=== PATIENT | female | born 1990 | race Caucasian/White ===

== ENCOUNTER → 2018-08-07 15:38 | Outpatient (CLI) | payer SELFPAY | END | disposition home or self-care (01) | LOC: D.LDO 15:38 | PROVIDERS: ATTEND Obstetrics & Gynecology | DX: O36.5990 Maternal care for other known or suspected poor fetal growth, unspecified trimester, not applicable or unspecified (principal); Z3A.00 Weeks of gestation of pregnancy not specified ==

== ENCOUNTER → 2018-08-14 11:35 | Outpatient (CLI) | payer SELFPAY | END | disposition home or self-care (01) | LOC: D.LDO 11:35 | DX: O36.5930 Maternal care for other known or suspected poor fetal growth, third trimester, not applicable or unspecified (principal); Z3A.30 30 weeks gestation of pregnancy ==

== ENCOUNTER → 2018-08-21 13:07 | Outpatient (CLI) | payer SELFPAY | END | disposition home or self-care (01) | LOC: D.LDO 13:07 | PROVIDERS: ATTEND Obstetrics & Gynecology | DX: O36.5930 Maternal care for other known or suspected poor fetal growth, third trimester, not applicable or unspecified (principal); Z3A.31 31 weeks gestation of pregnancy ==

== ENCOUNTER → 2018-08-28 16:06 | Outpatient (CLI) | payer SELFPAY | END | disposition home or self-care (01) | LOC: D.LDO 16:06 | PROVIDERS: ATTEND Obstetrics & Gynecology | DX: O36.5930 Maternal care for other known or suspected poor fetal growth, third trimester, not applicable or unspecified (principal); Z3A.32 32 weeks gestation of pregnancy ==

== ENCOUNTER → 2018-09-04 17:00 | Outpatient (CLI) | payer SELFPAY | END | disposition home or self-care (01) | LOC: D.LDO 17:00 | PROVIDERS: ATTEND Obstetrics & Gynecology | DX: O26.893 Other specified pregnancy related conditions, third trimester (principal); Z3A.33 33 weeks gestation of pregnancy ==

== ENCOUNTER → 2018-09-07 10:13 | Outpatient (CLI) | payer SELFPAY ==
[2018-09-07 10:36] LABS: BASOPHILS 0.3 % (0-2); EOSINOPHILS 1.6 % (0-7); HEMATOCRIT 31.7 % (36.0-48.0); HEMOGLOBIN 11.4 g/dL (12-16); IMMATURE GRANULOCYTES 0.3 % (0-5); LYMPHOCYTES 19.2 % (15-50); MCH 32.9 pg (26.0-34.0); MCV 91.6 fL (80.0-100.0); MEAN PLATELET VOLUME 11.3 fL (7.4-10.4); MONOCYTES 8.1 % (2-11); NEUTROPHILS 70.5 % (40-80); PLATELET COUNT 142 10x3/uL (130-400); RBC 3.46 10x6/uL (4.00-5.40); RDW 12.7 % (11.5-14.5); WBC 7.4 10x3/uL (4.8-10.8)
[2018-09-07 10:44] LABS: APPEARANCE CLEAR (CLEAR); BILIRUBIN NEGATIVE (NEGATIVE); COLOR YELLOW (YELLOW); GLUCOSE NEGATIVE (NEGATIVE); KETONE NEGATIVE (NEGATIVE); NITRITE NEGATIVE (NEGATIVE); PROTEIN NEGATIVE (NEGATIVE); SPECIFIC GRAVITY 1.015 (1.005-1.020); UROBILINOGEN NORMAL (NORMAL)
[2018-09-07 10:51] LABS: ALBUMIN 2.8 g/dL (3.4-5.0); ALKALINE PHOSPHATASE 108 U/L (46-116); ALT (SGPT) 32 U/L (10-68); BILIRUBIN - INDIRECT 0.17 mg/dL (0.00-1.00); BILIRUBIN - TOTAL 0.21 mg/dL (0.2-1.3); CALC OSMOLALITY 271 mosm/kg (275-300); CALCIUM 8.3 mg/dL (8.5-10.1); CARBON DIOXIDE 22.7 mmol/L (21.0-32.0); CHLORIDE - SERUM 105 mmol/L (98-107); CREATININE - SERUM 0.7 mg/dL (0.6-1.3); GLUCOSE 87 mg/dL (74-106); POTASSIUM - SERUM 3.8 mmol/L (3.5-5.1); PROTEIN - SERUM 6.7 g/dL (6.4-8.2); SODIUM 137 mmol/L (136-145); UREA NITROGEN 10 mg/dL (7-18); URIC ACID 5.4 mg/dL (2.6-7.2); eGFR NON AFRICAN AMERICAN > 90 mL/min (90-120)
[2018-09-07 10:52] LABS: BILIRUBIN - DIRECT 0.04 mg/dL (0.00-0.30)
== END | disposition home or self-care (01) ==
LOC: D.LDO 10:13
PROVIDERS: ATTEND Obstetrics & Gynecology
DX: O36.5930 Maternal care for other known or suspected poor fetal growth, third trimester, not applicable or unspecified (principal); Z3A.34 34 weeks gestation of pregnancy

== ENCOUNTER → 2018-09-11 09:54 | Outpatient (CLI) | payer SELFPAY | END | disposition home or self-care (01) | LOC: D.LDO 09:54 | PROVIDERS: ATTEND Obstetrics & Gynecology | DX: O36.5930 Maternal care for other known or suspected poor fetal growth, third trimester, not applicable or unspecified (principal); Z3A.34 34 weeks gestation of pregnancy ==

== ENCOUNTER → 2018-09-18 15:12 | Outpatient (CLI) | payer SELFPAY | END | disposition home or self-care (01) | LOC: D.LDO 15:12 | PROVIDERS: ATTEND Obstetrics & Gynecology | DX: O36.5930 Maternal care for other known or suspected poor fetal growth, third trimester, not applicable or unspecified (principal); Z3A.35 35 weeks gestation of pregnancy ==

== ENCOUNTER 2019-07-28 17:16 | Emergency (ER) | payer MEDICAID ==
[2019-07-28 17:24] VITALS: Wt 52.3 kg
[2019-07-28 17:49] LABS: BASOPHILS 0.3 % (0-2); EOSINOPHILS 2.2 % (0-7); HEMATOCRIT 40.2 % (36.0-48.0); HEMOGLOBIN 13.5 g/dL (12-16); IMMATURE GRANULOCYTES 0.1 % (0-5); LYMPHOCYTES 31.2 % (15-50); MCH 30.8 pg (26.0-34.0); MCHC 33.6 g/dL (31.0-37.0); MCV 91.6 fL (80.0-100.0); MEAN PLATELET VOLUME 10.2 fL (7.4-10.4); MONOCYTES 10.7 % (2-11); NEUTROPHILS 55.5 % (40-80); RBC 4.39 10x6/uL (4.00-5.40); RDW 12.7 % (11.5-14.5); WBC 7.4 10x3/uL (4.8-10.8)
[2019-07-28 17:50] LABS: PLATELET COUNT 243 10x3/uL (130-400)
[2019-07-28 18:10] LABS: CALC OSMOLALITY 276 mosm/kg (275-300); CALCIUM 9.2 mg/dL (8.5-10.1); CHLORIDE - SERUM 102 mmol/L (98-107); CREATININE - SERUM 1.1 mg/dL (0.6-1.3); GLUCOSE 107 mg/dL (74-106); POTASSIUM - SERUM 3.8 mmol/L (3.5-5.1); SODIUM 139 mmol/L (136-145); UREA NITROGEN 9 mg/dL (7-18); eGFR NON AFRICAN AMERICAN 63 mL/min (90-120)
[2019-07-28 18:14] LABS: APTT 28.9 SECONDS (22.8-39.4); INR 1.04 (0.85-1.17); PROTIME 13.5 SECONDS (11.6-15.0)
[2019-07-28 18:30] LABS: ALBUMIN 4.2 g/dL (3.4-5.0); ALKALINE PHOSPHATASE 43 U/L (30-120); ALT (SGPT) 12 U/L (10-68); CKMB 0.6 U/L (0.0-3.6); CREATINE KINASE 39 UL (21-215); PROTEIN - SERUM 8.3 g/dL (6.4-8.2); TROPONIN-I < 0.017 ng/mL (0.000-0.060)
[2019-07-28] MEDS ORDERED: XANAX0.25 MG PO (19:03)
[2019-07-28 19:38] VITALS: BP 114/78
== END 2019-07-28 19:38 | disposition home or self-care (01) ==
LOC: D.ER 17:16
PROVIDERS: Emergency Medicine
DX: R07.89 Other chest pain (principal); F41.9 Anxiety disorder, unspecified

== ENCOUNTER 2020-02-14 00:47 | Inpatient (IN) | payer MEDICAID ==
[~2020-02-14] VITALS: Ht 154.9 cm; Wt 68.2 kg
[~2020-02-14 00:47] MED LIST: XANAX0.25 MG PO
[2020-02-14 00:59] VITALS: Ht 154.9 cm; Wt 68.2 kg
[2020-02-14 01:15] VITALS: BP 107/74
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
--- NOTE | 2020-02-14 01:32 | NUR ---
POISON CONTROL CALLED
[2020-02-14 01:43] LABS: BILIRUBIN NEGATIVE (NEGATIVE); HCG URINE NEGATIVE (NEGATIVE); KETONE NEGATIVE (NEGATIVE); NITRITE NEGATIVE (NEGATIVE); UROBILINOGEN NORMAL mg/dL (< 2)
[2020-02-14 01:46] LABS: UDS - AMPHET NEGATIVE QUAL (NEGATIVE); UDS - BARB NEGATIVE QUAL (NEGATIVE); UDS - BENZO POSITIVE QUAL (NEGATIVE); UDS - COCAINE NEGATIVE QUAL (NEGATIVE); UDS - OPIATE NEGATIVE QUAL (NEGATIVE); UDS - PCP NEGATIVE QUAL (NEGATIVE); UDS - THC POSITIVE QUAL (NEGATIVE)
[2020-02-14 01:49] LABS: BASOPHILS 0.3 % (0-2); EOSINOPHILS 2.9 % (0-7); HEMOGLOBIN 10.7 g/dL (12-16); IMMATURE GRANULOCYTES 0.1 % (0-5); LYMPHOCYTES 22.9 % (15-50); MCH 30.3 pg (26.0-34.0); MCHC 33.4 g/dL (31.0-37.0); MCV 90.7 fL (80.0-100.0); MEAN PLATELET VOLUME 10.5 fL (7.4-10.4); MONOCYTES 7.4 % (2-11); NEUTROPHILS 66.4 % (40-80); PLATELET COUNT 202 10x3/uL (130-400); RBC 3.53 10x6/uL (4.00-5.40); WBC 9.1 10x3/uL (4.8-10.8)
[2020-02-14 01:51] LABS: ANION GAP 11.1 mmol/L (8-16); CALCIUM 8.4 mg/dL (8.5-10.1); CARBON DIOXIDE 27.4 mmol/L (21.0-32.0); CREATININE - SERUM 1.1 mg/dL (0.6-1.3); POTASSIUM - SERUM 3.5 mmol/L (3.5-5.1)
[2020-02-14 01:58] LABS: ALBUMIN 3.9 g/dL (3.4-5.0); BILIRUBIN - TOTAL 0.67 mg/dL (0.2-1.3); MAGNESIUM - SERUM 1.8 mg/dL (1.8-2.4); PROTEIN - SERUM 7.3 g/dL (6.4-8.2)
[2020-02-14 02:30] VITALS: BP 96/54
[2020-02-14 03:30] VITALS: BP 99/63
[2020-02-14 05:30] VITALS: BP 98/57
--- NOTE | 2020-02-14 06:44 | NUR ---
COVID SWAB PREFORMED AT SENT TO LAB AT THIS TIME.
[2020-02-14 06:55] LABS: CREATINE KINASE 92 UL (21-215)
[2020-02-14 06:57] LABS: TROPONIN-I < 0.017 ng/mL (0.000-0.060)
--- NOTE | 2020-02-14 07:00 | NUR ---
REPORT GIVEN TO PALOMA GUTIERREZ.
--- NOTE | 2020-02-14 07:47 | NUR ---
BREAKFAST TRAY TO PT.
[2020-02-14 07:48] VITALS: BP 111/71
--- NOTE | 2020-02-14 08:48 | NUR ---
PT STATES SHE NEEDS TO LEAVE BECAUSE SHE HAS A SPECIAL NEEDS BABY. STATES SHE IS SORRY SHE TOOK THE PILLS. DR. FERNANDEZ ET THIS RN EXPLAIN TO PT THAT SHE MUST BE EVALUATED FOR SI BY A BEHAVIORAL HEALTH PROFESSIONAL. PT EXPRESSES ACCURATE UNDERSTANDING ET AGREES TO POC. DR. MENDOSA CONTACTED TO REEVALUATE PT FOR MEDICAL CLEARANCE FOR PSYCH PLACEMENT.
--- NOTE | 2020-02-14 11:13 | NUR ---
CONTINUE AWAITING REEVALUATION BY DR. MENDOSA. PT CALM/COOPERATIVE.
[2020-02-14 15:31] VITALS: BP 118/73
--- NOTE | 2020-02-14 15:46 | NUR ---
CONTACTED [facility] FOR UPDATE ON PLACEMENT. THEY REQUEST COPY OF DR MARQUES NOTE STATING PT MEDICALLY CLEARED. UPDATED VITALS AND COPY OF DR MARQUES NOTE FAXED TO [facility] AT THIS TIME.
--- NOTE | 2020-02-14 19:00 | NUR ---
REPORT RECEIVED FROM PALOMA GUTIERREZ. PT IN SAFE ROOM, NO SIGNS DISTRESS NOTED AT THIS TIME. WILL CONTINUE TO MONITOR. PT IS WITHIN LINE OF SIGHT OF SITTER.
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
[2020-02-15 00:37] VITALS: BP 97/53
--- NOTE | 2020-02-15 00:37 | NUR ---
VSS, PT ARROUSES TO VERBAL STIMULI. NO SIGNS OF DISTRESS NOTED. PT DENIES ANY NEEDS. SITTER WITHIN LINE OF SIGHT. WILL CONTINUE TO MONITOR.
[2020-02-15 06:30] LABS: BASOPHILS 0.2 % (0-2); EOSINOPHILS 7.8 % (0-7); HEMATOCRIT 31.5 % (36.0-48.0); HEMOGLOBIN 10.4 g/dL (12-16); IMMATURE GRANULOCYTES 0.2 % (0-5); MCH 30.1 pg (26.0-34.0); MCV 91.3 fL (80.0-100.0); NEUTROPHILS 51.8 % (40-80); PLATELET COUNT 171 10x3/uL (130-400); RBC 3.45 10x6/uL (4.00-5.40)
[2020-02-15 06:33] LABS: WBC 5.1 10x3/uL (4.8-10.8)
[2020-02-15 06:44] LABS: APTT 31.5 SECONDS (22.8-39.4); INR 1.11 (0.85-1.17); PROTIME 14.3 SECONDS (11.6-15.0)
[2020-02-15 06:52] LABS: ALBUMIN 3.4 g/dL (3.4-5.0); ALKALINE PHOSPHATASE 33 U/L (30-120); ALT (SGPT) 10 U/L (10-68); BILIRUBIN - TOTAL 0.64 mg/dL (0.2-1.3); CALC OSMOLALITY 275 mosm/kg (275-300); CALCIUM 8.2 mg/dL (8.5-10.1); CARBON DIOXIDE 25.7 mmol/L (21.0-32.0); CHLORIDE - SERUM 107 mmol/L (98-107); CKMB 0.8 U/L (0.0-3.6); CREATININE - SERUM 0.8 mg/dL (0.6-1.3); GLUCOSE 83 mg/dL (74-106); MAGNESIUM - SERUM 1.9 mg/dL (1.8-2.4); POTASSIUM - SERUM 3.8 mmol/L (3.5-5.1); PROTEIN - SERUM 6.5 g/dL (6.4-8.2); SODIUM 139 mmol/L (136-145); TROPONIN-I 0.028 ng/mL (0.000-0.060); UREA NITROGEN 10 mg/dL (7-18); eGFR NON AFRICAN AMERICAN 90 mL/min (90-120)
--- NOTE | 2020-02-15 07:28 | NUR ---
LEFT MESSAGE WITH NURSE AT [facility] REGARDING COVID RESULT PENDING. NURSE STATED THAT INTAKE WILL CALL BACK.
--- NOTE | 2020-02-15 10:42 | NUR ---
RA SENA - PT GIRLFRIEND - [phone]
--- NOTE | 2020-02-15 10:43 | NUR ---
CONTINUE AWAITING COVID SWAB RESULTS. PT REMAINS CALM/COOPERATIVE. DENIES NEEDS AT THIS TIME. BREAKFAST TRAY TO PT.
--- NOTE | 2020-02-15 11:53 | NUR ---
MEAL TRAY TO PT. CLEAN SCRUBS TO PT. PT DENIES FURTHER NEEDS.
[2020-02-15 17:14] VITALS: BP 110/69
--- NOTE | 2020-02-18 08:24 | CN ---
PATIENT NAME:MAJOR MAYFIELD MEDICAL RECORD: [id number] : 89 LOCATION:[facility]- ADMIT DATE: 02/14/20 ACCOUNT: [id number] CONSULTING PHYSICIAN: FAREED ANTOINE MD REFERRING PHYSICIAN: MICKY MARQUES MD DATE OF CONSULTATION: 02/14/2020 IDENTIFYING DATA: The patient is 29 years old and she is admitted to the hospital secondary to an overdose. CHIEF COMPLAINT: Depression. HISTORY OF PRESENT ILLNESS: The patient was brought to the hospital in a semiconscious state after having taken a deliberate overdose of Xanax and Inderal. She stated clearly to multiple staff members that she was going to kill herself and that she did this to kill herself. While in the observation room at the Emergency Department, she also wrapped a cord around her neck and attempted to strangle herself. It was only through the quick intervention of one of the aides assigned to watch her that she was stopped. She now tells me that she is not suicidal and wants to go home because she has a handicapped child to care for. She becomes angry when I asked her about the overdose and the attempt to strangle herself in the Emergency Department and says that everybody makes an expletive deleted mistake. She endorses numerous neurovegetative depressive symptoms and has a longstanding history of chaotic dysfunctional interpersonal relationships along with the previous history of suicide attempts and psychiatric hospitalizations. ASSESSMENT: 1. Major depression. 2. Status post overdose. PLAN: At this time, the patient is in acute danger to herself and needs to be confined to a psychiatric hospital for observation and treatment. She should be confined against her will if necessary. She is acutely dangerous and indeed she as mentioned above, tried to hurt herself in the Emergency Room after being taken to the Emergency Room for suicide attempt. She should be transferred to psychiatric care as soon as it is practical to do so. TRANSINT:[id number] Voice Confirmation ID: [id number] DOCUMENT ID: [id number] FAREED ANTOINE MD at 0824 CC: [id number] DICTATION DATE: 02/14/201419 BLANKET MAKER: 02/14/20 1437 DIS IN 02/15/20 [place] [id number] [place], [place] [id number]
== END 2020-02-15 17:14 | disposition other institution (70) | DRG 918 ==
LOC: D.ER 00:47 → D.EDHOLD 02:04
PROVIDERS: Family Medicine; ADMIT Family Medicine; ATTEND Family Medicine
DX: T42.4X2A Poisoning by benzodiazepines, intentional self-harm, initial encounter (principal); F12.90 Cannabis use, unspecified, uncomplicated; D64.9 Anemia, unspecified; F32.9 Major depressive disorder, single episode, unspecified